=== PATIENT | female | born 1970 | race Caucasian/White ===

== ENCOUNTER 2022-05-26 16:21 | Outpatient (REF) | payer OTHER, SELFPAY ==
[2022-05-26 17:55] LABS: Blood Urea Nitrogen 12 mg/dL (9-16); Estimated Glomerular Filt Rate > 60
== END 2022-05-26 16:22 | disposition home or self-care (01) ==
LOC: HO.LAB 16:21
PROVIDERS: Psychiatry & Neurology Neurology; PCP Nurse Practitioner Primary Care; Visit Provider Internal Medicine
DX: I67.848 Other cerebrovascular vasospasm and vasoconstriction (principal)
CPT/HCPCS: 36415; 82565; 84520

== ENCOUNTER 2022-06-10 10:46 | Outpatient (REF) | payer OTHER, SELFPAY ==
--- NOTE | ~2022-06-10 | CT_ITS ---
EXAMINATION: CT ANGIOGRAM BRAIN, HEAD CLINICAL INFORMATION: Cerebral vasospasm. COMPARISON: There are no prior studies available for comparison at time of dictation. TECHNIQUE: A noncontrast axial CT scan of the head was obtained. Test bolus sequences followed by intravenous administration 75 mL of Omnipaque 350 intravenous contrast. Helical imaging was performed in the axial plane from the skull base to the vertex. Delayed postcontrast imaging of the head was also performed. The data was processed at the nuclear medical technologist workstation for generation of MIP sequences. Three-dimensional volume rendered reformatted images were also generated at an offline 3-D workstation. The degree of stenosis determined by NASCET criteria. This CT examination was performed using dose optimization techniques as appropriate, variously including the following: *Automated exposure control *Adjustment of mA and/or kV according to patient size (this includes techniques or standardized protocols for targeted exams where dose is matched to indication/reason for exam; i.e. extremities or head) *Use of iterative reconstruction technique DLP: 2162 mGy-cm FINDINGS: CT Head: There is no evidence of acute intracranial hemorrhage or territorial infarction. No abnormal mass-effect or midline shift is seen. Rubi to white matter differentiation is well preserved. No extra-axial fluid collections are identified. There is no abnormal enhancement. The ventricles and sulci normal in size. Brain parenchymal attenuation appears normal. There are no acute osseous or soft tissue abnormalities. There is hyperostosis frontalis interna. There is calcification along the superior falx toward the left of midline which may be calcification or may be a small meningioma; there is no mass effect on the adjacent brain parenchyma. The mastoid air cells are well-aerated. There is mild mucoperiosteal thickening in the ethmoid sinuses. CTA Head: In the anterior circulation, the distal internal carotid arteries within the neck appear normal. There are mild atheromatous calcifications of the cavernous internal carotid arteries bilaterally without stenosis. The supraclinoid internal carotid arteries and the intracranial internal carotid bifurcations appear normal. The middle and anterior cerebral arteries bilaterally demonstrate normal caliber with no evidence of focal stenosis, aneurysm or vascular malformation. There is normal arborization of the middle cerebral artery branches. The anterior communicating artery is normal. In the posterior circulation, the vertebral arteries are codominant and have uniform caliber. The basilar artery appears both posterior cerebral arteries are patent with uniform caliber. There is a origin of the right posterior cerebral artery. The venous sinuses opacify normally. CT/CT angio head IMPRESSION: 1. There are no acute bleeds or infarcts. There are no masses or areas of abnormal enhancement. 2. There are no focal stenoses, aneurysms or vascular malformations. The caliber of the intracranial arteries is normal. 3. There is a small calcification along the left falx superiorly which may be consistent with calcification or a small meningioma. There is no mass effect on the adjacent brain parenchyma.
[2022-06-10] MEDS: iohexoL 350 MG/ML 100 ML INFUS..BTL IV (12:06)
== END 2022-06-10 10:47 | disposition home or self-care (01) ==
LOC: HO.CT 10:46
PROVIDERS: PCP Internal Medicine; Visit Provider Psychiatry & Neurology Neurology
DX: I67.848 Other cerebrovascular vasospasm and vasoconstriction (principal)
CPT/HCPCS: 70496; Q9967

== ENCOUNTER → 2025-01-13 13:01 | Outpatient (AMB) | payer OTHER, SELFPAY ==
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
--- OUTSIDE RECORDS SUMMARY | 2025-01-13 17:35 | XMS_ITS | Encounter Summary ---
Author Organization [facility] Address [address] [facility] [address] [place] [id number] Phone Care Team Providers Care Sod Stripper Name Role Phone Pallavi Kang NP Primary Care Provid er Encounter Details Date Type Department Care Team (Late st Contact Info) Description 10/31/2023 Procedure [facility], Ct Scan - [address] [id number] Social History Tobacco Use Types Packs/Day Years Used Date Smoking Tobacco: Former Cigarettes 1 11 983 - 1993 Smokeless Tobacco: Never Alcohol Use Standard Drinks/Week Comments Yes 0 (1 standard drink = 0.6 oz pur e alcohol) few glasses of wine/yr Education Answer Date Recorded Are you interested in more education? Not on flash e 2022 Are you concerned about learning? Not on file 2022 No 2022 No 2022 Digital Access Answer Date Recorded No 07/17/2022 No 07/17/2022 Reliable internet access at home? Not on file 07/17/2022 Device with a working camera? Not on file Comments Unknown Sex and Gender Information Value Date Recorded Sex Assigned at Not on file Legal Sex Female 11:34 AM EST Gender Identity Not on file Sexual Orientation Not on file documented as of this encounter Plan of Treatment Not on file documented as of this encounter Visit Diagnoses Not on filedocumented in this encounter Care Teams Sod Stripper Relationship Specialty Start Date End Date Pallavi Kang NP [address] [place] [id number] PCP - General Nurse Practitioner 04/18/22 documented as of this encounter Additional Source Comments The information contained in this document represents components of the legal health record. It is not the complete legal health record.[facility]
--- OUTSIDE RECORDS SUMMARY | 2025-01-13 17:35 | XMS_ITS | Encounter Summary ---
Author Organization [facility] Address [address] [facility] [address] [place] [phone] Phone Care Team Providers Care Principal Solutions Architect Name Role Phone Pallavi Kang NP Primary Care Provid er Reason for Visit * Reason Comments Medication Refill Encounter Details Date Type Department Care Team (Late st Contact Info) Description 12/23/2024 Refill [facility] Rheumatology [address] [place] [address] Agatha Bhardwaj MD [address] [facility], [address] [place] [address] [email or web address] Medication Refill Social History Tobacco Use Types Packs/Day Years Used Date Smoking Tobacco: Former Cigarettes 1 11 1 983 - 1993 Smokeless Tobacco: Never Alcohol [...] documented as of this encounter Visit Diagnoses Diagnosis Psoriatic arthritis Psoriatic arthropathy documented in this encounter Care Teams Principal Solutions Architect Relationship Specialty Start Date End Date Pallavi Kang NP [address] [place] [address] PCP - General Nurse Practitioner 04/18/22 documented as of this encounter Additional Source Comments The information contained in this document represents components of the legal health record. It is not the complete legal health record.[facility]
--- OUTSIDE RECORDS SUMMARY | 2025-01-13 17:35 | XMS_ITS | Encounter Summary ---
Author Organization [facility] Address [address] [facility] [address] [place] [phone] Phone Care Team Providers Care Roving Sizer Name Role Phone Pallavi Kang NP Primary Care Provid er Reason for Visit * Reason Comments Medication Refill Encounter Details Date Type Department Care Team (Late st Contact Info) Description 01/06/2025 Refill [facility] Rheumatology [address] [place] [address] Agatha Bhardwaj MD [address] [facility], [address] [place] [address] [email or web address] Medication Refill Social History Tobacco Use Types [...] arthropathy documented in this encounter Care Teams Roving Sizer Relationship Specialty Start Date End Date Pallavi Kang NP [address] [place] [address] PCP - General Nurse Practitioner 04/18/22 documented as of this encounter Additional Source Comments The information contained in this document represents components of the legal health record. It is not the complete legal health record.[facility]
--- OUTSIDE RECORDS SUMMARY | 2025-01-13 17:36 | XMS_ITS | Clinical Summary ---
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 04/08/19 23 Active aspirin 81 MG EC tablet Take 81 mg by mouth daily. 03/03/19 23 Active atorvastatin (LIPITOR) 80 MG tablet Take 1 tablet by mouth daily. 10/01/19 23 Active escitalopram oxalate (LEXAPRO) 10 MG tablet Take 1 tablet by mouth every morning. 10/11/19 23 Active ezetimibe (ZETIA) 10 mg tablet Take 1 tablet by mouth daily. 10/11/19 23 Active irbesartan-hydro CHLOROthiazide (AVALIDE) 150-12.5 mg per tablet Take 1 tablet by mouth every morning. 10/01/19 23 Active metFORMIN (GLUCOPHAGE-XR) 500 MG 24 hr tablet Take 1,000 mg by mouth 2 (two) times a day. 10/01/19 23 Active metoprolol succinate (TOPROL-XL) 25 MG 24 hr tablet Take 1 tablet by mouth every morning. 10/01/19 23 Active nitroglycerin (NITROSTAT) 0.[address] 1 tablet (0.3 mg total) under the tongue every 5 (five) minutes as needed for chest pain. 90 tablet 3 10/27/19 24 Active fluocinonide 0.05 % ointmentIndicati ons:Psoriasis Apply topically 2 (two) times a day. 15 g 03/05/19 25 Active ibuprofen (ADVIL,MOTRIN) 800 MG tablet Take 800 mg by mouth daily as needed. Takes rarely about 1 a month 05/15/19 25 Active OZEMPIC 1 mg/dose (4 mg/3 mL) subcutaneous injection pen Inject 1 mg under the skin once a week. 05/02/19 25 Active betamethasone valerate 0.1 % ointmentIndicati ons:Psoriasis Apply topically 2 (two) times a day. 45 g 1 06/06/19 25 Active cholecalciferol (VITAMIN D3) 5,000 unit capsuleIndicatio ns:Vitamin D insufficiency Take 1 capsule (5,000 Units total) by mouth daily. 90 capsule 1 01/07/20 25 Active etanercept (ENBREL) 50 mg/mL (1 mL) PnIjIndications: Psoriatic arthritis Inject 1 mL (50 mg total) under the skin every 7 days. 4 mL 11 01/07/20 25 Active cholecalciferol (VITAMIN D3) 25 MCG (1,000 unit) tablet Take 1,000 Units by mouth daily. 025 Discontinued(N o longer taking) etanercept (ENBREL) 50 mg/mL (1 mL) PnIjIndications: Psoriatic arthritis Inject 1 mL (50 mg total) under the skin every 7 days. 4 mL 5 04/03/19 25 025 Discontinued(R eorder) LANLanieUS SOLOSTAR U-100 INSULIN 100 unit/mL (3 mL) InPn injection pen Inject 10 Units under the skin nightly at bedtime. 05/28/19 25 025 Discontinued(N o longer taking) cholecalciferol (VITAMIN D3) 5,000 unit capsuleIndicatio ns:Vitamin D insufficiency Take 1 capsule (5,000 Units total) by mouth daily. 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 Continue diligent portion control. Limit concentrated sugars, saturated fats and calories in the diet. Keep well-hydrated. If unable to achieve expected goal consider formal dietary/nutritional support. Class 2 severe obesity due t o excess calories with serious comorbidity and body mass index (BMI) of 37.0 to 37.9 in adult 06/05/2024 Assessment & Plan (07/06/2024 3:44 PM EDT): Congratulations on losing 16 pounds from 230 on 03/01/2024 down to 214 today and keep it off. Continue diligent portion control. Limit concentrated sugars, saturated fats and calories in the diet. Keep well-hydrated. If unable to achieve expected goal consider formal dietary/nutritional support. Vitamin D insufficiency 03/01/2024 Assessment & Plan (01/06/2025 10:14 AM EST): Take vitamin D 5000 units daily to replace the deficit. Assessment & Plan (06/05/2024 5:59 PM EDT): Take vitamin D 5000 units daily to replace the deficit. Assessment & Plan (03/01/2024 12:56 PM EST): Take vitamin D 5000 units daily to replace the deficit. Psoriasis 03/01/2024 Assessment & Plan (01/06/2025 10:14 AM EST): In the past she had good response to 0.0.5 % topical Betamethasone dipropionate ointment that I represcribed her today while awaiting approval for biologic modifying antirheumatic drug from [employer] (ixekizumab) Assessment & Plan (06/05/2024 5:59 PM EDT): In the past she had good response to 0.0.5 % topical Betamethasone dipropionate ointment that I represcribed her today while awaiting approval for biologic modifying antirheumatic drug from [employer] inhibitors group-Taltz (ixekizumab) Assessment & Plan (03/01/2024 12:57 PM EST): In the past she had good response to 0.0.5 % topical Betamethasone dipropionate ointment that I represcribed her today while awaiting approval for biologic modifying antirheumatic drug from IL-17 inhibitors group-Taltz (ixekizumab) Primary osteoarthritis of left hip 03/01/2024 Assessment & Plan (03/01/2024 1:00 PM EST): Avoid falls, injuries, overuse, walking on the incline. If symptoms persist may need to consider visit to the orthopedic surgeon to consider intra-articular steroid injection. Vitamin D deficiency, unspecified 02/18/2024 Assessment & Plan (02/18/2024 10:09 PM EST): Serum level requested to make sure that she does not require additional supplementation to keep it in optimal range: 40-45 ng/ml. Encounter for monitoring of etanercept therapy 1 04/03/2023 Assessment & Plan (01/06/2025 10:14 AM EST): Hold Enbrel whenever running fever, feeling sick or taking antibiotics. Complete entire course of antibiotics and wait at least 48 hours after the last dose to make sure that infection does not recur before restarting Enbrel on its usual weekly dosing schedule. Monitor for any signs of infection, injection site reaction. Make sure to inform any new MD PA, DEMOLITION ENGINEER about treatment with Enbrel particularly in emergency situations Assessment & Plan (06/05/2024 5:59 PM EDT): Hold Enbrel whenever running fever, feeling sick or taking antibiotics. Complete entire course of antibiotics and wait at least 48 hours after the last dose to make sure that infection does not recur before restarting Enbrel on its usual weekly dosing schedule. Monitor for any signs of infection, injection site reaction. Make sure to inform any new MD, PA, DEMOLITION ENGINEER about treatment with Enbrel particularly in emergency situations Assessment & Plan (03/01/2024 12:58 PM EST): Hold Enbrel whenever running fever, feeling sick or taking antibiotics. Complete entire course of antibiotics and wait at least 48 hours after the last dose to make sure that infection does not recur before restarting Enbrel on its usual weekly dosing schedule. Monitor for any signs of infection, injection site reaction. Make sure to inform any new MEHUL WILLS DEMOLITION ENGINEER about treatment with Enbrel particularly in emergency situations Assessment & Plan (02/18/2024 10:11 PM EST): Hold Enbrel whenever running fever, feeling sick or taking antibiotics. Complete entire course of antibiotics and wait at least 48 hours after the last dose to make sure that infection does not recur before restarting Enbrel on its usual weekly dosing schedule. Monitor for any signs of infection, injection site reaction. Make sure to inform any new MEHUL WILLS DEMOLITION ENGINEER about treatment with Enbrel particularly in emergency situations Encounter for monitoring statin therapy 02/01/20 Assessment & Plan (01/06/2025 10:14 AM EST): Monitor for muscle tenderness, swelling and weakness Assessment & Plan (06/05/2024 5:43 PM EDT): Monitor for muscle tenderness, swelling and weakness Assessment & Plan (03/01/2024 12:57 PM EST): Monitor for muscle tenderness, swelling and weakness Assessment & Plan (02/18/2024 10:10 PM EST): Monitor for muscle tenderness, swelling and weakness Sicca 02/01/2024 Assessment & Plan (02/18/2024 10:10 PM EST): Keep well-hydrated. Avoid spicy and acidic foods. Diligent mouth hygiene. Regular dental checkups. Right bundle branch block (RBBB) 06/13/2023 Shortness of breath 06/09/2023 Assessment & Plan (06/09/2023 10:57 AM EDT): I will investigate with an echo Palpitations 06/09/2023 Assessment & Plan (06/09/2023 10:57 AM EDT): This lady sounded like she had a real CVA I am going to get her tested for sleep apnea and atrial fibrillation Diabetes 1.5, managed as type 2 06/09/2023 Assessment & Plan (01/06/2025 10:14 AM EST): Continue well-balanced nutritionally diet focusing on avoiding concentrated sugars, cholesterol and saturated fats in her diet. Follow-up closely with PCP and if needed pencil inspector. Assessment & Plan (06/05/2024 5:59 PM EDT): Continue well-balanced nutritionally diet focusing on avoiding concentrated sugars, cholesterol and saturated fats in her diet. Follow-up closely with PCP and if needed pencil inspector. Assessment & Plan (03/01/2024 12:58 PM EST): Continue well-balanced nutritionally diet focusing on avoiding concentrated sugars, cholesterol and saturated fats in her diet. Follow-up closely with PCP and if needed pencil inspector. Assessment & Plan (02/18/2024 10:12 PM EST): Continue well-balanced nutritionally diet focusing on avoiding concentrated sugars, cholesterol and saturated fats in her diet. Follow-up closely with PCP and if needed pencil inspector. Assessment & Plan (09/13/2023 9:22 AM EDT): A1c last checked in May was poorly controlled at 8.7 I did discuss with her at length lifestyle modification which is hager here. Atherosclerosis of [place] coronary artery 2023 Assessment & Plan (09/13/2023 9:21 AM EDT): Asymptomatic after PCI EF is normal by recent echocardiogram Assessment & Plan (06/09/2023 10:57 AM EDT): This lady is currently asymptomatic post PCI I have ordered an echo she recently had a stress test done at [place] which was negative for ischemia Pure hypercholesterolemia 06/09/2023 Assessment & Plan (09/13/2023 9:22 AM EDT): She is on high intensity statin therapy LDL is aggressively controlled in the 40s Assessment & Plan (06/09/2023 10:58 AM EDT): She is on high intensity statin therapy LDL should be less than 70 mg/dL A1c should be less than 7 Inflammatory arthritis 02/14/2023 Assessment & Plan (01/06/2025 10:14 AM EST): According to her report she is seen by health care coach-Dr. Freeman usually once a year but was not sure about his diagnosis-? Psoriasis versus eczema - I requested release of records for review-they have not arrived yet. X-rays from 02/01/2024 including hands, feet, sacroiliac joints and hips revealed mostly degenerative changes without erosions however bulky bilateral Achilles calcaneal enthesophytes, L>R in addition to small plantar calcaneal enthesophytes that are frequently present in patients with psoriatic arthritis that she needs to get treated more effectively to prevent development of erosions and joint deformities. She still has Enbrel at home and is willing to continue on it for now until I apply to her insurance for approval to switch her treatment to psoriatic arthritis geared medications such as Taltz (ixekizumab) versus Tremfya (guselkumab) versus Cosentyx (secukinumab). She is instructed to call for appointment with the nurse once the medication is delivered to her house so she can get the first injection in the office and be observed for 30 minutes to assure that she has no allergic reaction. Provided she has no worsening she is asked to come back in 4 months with prior monitoring labs-standing orders in [facility]. I have asked her to keep a diary of flares with details regarding location, severity, length of episode and her strategy. She may also get lab work at the time of flare with the hope of better understanding it. Call if problems or questions. Assessment & Plan (07/06/2024 3:45 PM EDT): According to her report she is seen by health care coach-Dr. Freeman usually once a year but was not sure about his diagnosis-? Psoriasis versus eczema - I requested release of records for review-they have not arrived yet. X-rays from 02/01/2024 including hands, feet, sacroiliac joints and hips revealed mostly degenerative changes without erosions however bulky bilateral Achilles calcaneal enthesophytes, L>R in addition to small plantar calcaneal enthesophytes that are frequently present in patients with psoriatic arthritis that she needs to get treated more effectively to prevent development of erosions and joint deformities. She still has Enbrel at home and is willing to continue on it for now until I apply to her insurance for approval to switch her treatment to psoriatic arthritis geared medications such as Taltz (ixekizumab) versus Tremfya (guselkumab) versus Cosentyx (secukinumab). She is instructed to call for appointment with the nurse once the medication is delivered to her house so she can get the first injection in the office and be observed for 30 minutes to assure that she has no allergic reaction. Provided she has no worsening she is asked to come back in 4 months with prior monitoring labs-standing orders in [facility]. I have asked her to keep a diary of flares with details regarding location, severity, length of episode and her strategy. She may also get lab work at the time of flare with the hope of better understanding it. Call if problems or questions. Assessment & Plan (03/01/2024 12:56 PM EST): According to her report she is seen by health care coach-Dr. Freeman usually once a year but was not sure about his diagnosis-? Psoriasis versus eczema - I requested release of records for review-they have not arrived yet. X-rays from 02/01/2024 including hands, feet, sacroiliac joints and hips revealed mostly degenerative changes without erosions however bulky bilateral Achilles calcaneal enthesophytes, L>R in addition to small plantar calcaneal enthesophytes that are frequently present in patients with psoriatic arthritis that she needs to get treated more effectively to prevent development of erosions and joint deformities. She still has Enbrel at home and is willing to continue on it for now until I apply to her insurance for approval to switch her treatment to psoriatic arthritis geared medications such as Taltz (ixekizumab) versus Tremfya (guselkumab) versus Cosentyx (secukinumab). She is instructed to call for appointment with the nurse once the medication is delivered to her house so she can get the first injection in the office and be observed for 30 minutes to assure that she has no allergic reaction. Provide that she has no worsening she is asked to come back in 3 months with prior monitoring labs-standing orders in [facility]. Call if problems or questions. Assessment & Plan (02/18/2024 10:08 PM EST): According to her report she is seen by health care coach-Dr. Freeman usually once a year but was not sure about his diagnosis-? Psoriasis versus eczema - I requested release of records for review. I took the liberty of getting a new set of lab work and x-rays looking for confirmation of suspected psoriatic arthritis. She still has Enbrel at home and is willing to continue on it for now in addition to short burst of prednisone as needed while reviewing other options such as Cimzia (certolizumab), Simponi (golimumab) versus Remicade (infliximab) Dysuria 02/14/2023 Psoriatic arthritis 11/14/2022 Assessment & Plan (01/06/2025 10:51 AM EST): According to her report she is seen by health care coach-Dr. Freeman usually once a year but was not sure about his diagnosis-? Psoriasis versus eczema - I requested release of records for review-they have not arrived yet. X-rays from 02/01/2024 including hands, feet, sacroiliac joints and hips revealed mostly degenerative changes without erosions however bulky bilateral Achilles calcaneal enthesophytes, L>R in addition to small plantar calcaneal enthesophytes that are frequently present in patients with psoriatic arthritis that she needs to get treated more effectively to prevent development of erosions and joint deformities. She still has Enbrel at home and is willing to continue on it for now until I apply to her insurance for approval to switch her treatment to psoriatic arthritis geared medications such as Taltz (ixekizumab) versus Tremfya (guselkumab) versus Cosentyx (secukinumab). She is instructed to call for appointment with the nurse once the medication is delivered to her house so she can get the first injection in the office and be observed for 30 minutes to assure that she has no allergic reaction. Provided she has no worsening she is asked to come back in 4 months with prior monitoring labs-standing orders in [facility]. I have asked her to keep a diary of flares with details regarding location, severity, length of episode and her strategy. She may also get lab work at the time of flare with the hope of better understanding it. Call if problems or questions. Assessment & Plan (06/05/2023 3:12 PM EDT): Inflammatory psoriatic arthritis with overall increase in stiffness and fatigue. She has no current swelling. She should continue with Enbrel which she appears to be tolerating. Gave her an intramuscular injection of triamcinolone to reduce her stiffness. Assessment & Plan (11/14/2022 10:54 AM EDT): Psoriatic arthritis currently stable on weekly Enbrel. We talked about other medication options, perhaps Rinvoq or Xeljanz, but given her cardiac history Enbrel may be her safest option at this time. She has no active synovitis, but does have overall stiffness and achiness. Get some baseline labs today including hepatitis B, C and QuantiFERON gold. Primary osteoarthritis involving multiple joints 11/14/2022 Assessment & Plan (01/06/2025 10:13 AM EST): Continue joint protection, energy conservation. Gentle, regular exercise routine. Avoid falls, injuries, overuse. Work on bringing her body weight as close as possible to ideal range for her height. She may benefit from topical cream such as Arnica, Biofreeze, Aspercreme versus medicated patches such as salonpas, icy hot patch 2-3 times daily and if necessary at bedtime x 3 weeks. Okay to use carefully Tylenol 650 mg up to 3 times as needed Assessment & Plan (03/01/2024 12:50 PM EST): Continue joint protection, energy conservation. Gentle, regular exercise routine. Avoid falls, injuries, overuse. Work on bringing her body weight as close as possible to ideal range for her height. She may benefit from topical cream such as Arnica, Biofreeze, Aspercreme versus medicated patches such as salonpas, icy hot patch 2-3 times daily and if necessary at bedtime x 3 weeks. Okay to use carefully Tylenol 650 mg up to 3 times as needed Assessment & Plan (02/18/2024 10:02 PM EST): Continue joint protection, energy conservation. Gentle, regular exercise routine. Avoid falls, injuries, overuse. Work on bringing her body weight as close as possible to ideal range for her height. She may benefit from topical cream such as Arnica, Biofreeze, Aspercreme versus medicated patches such as salonpas, icy hot patch 2-3 times daily and if necessary at bedtime x 3 weeks. Okay to use carefully Tylenol 650 mg up to 3 times as needed Assessment & Plan (06/05/2023 3:13 PM EDT): Osteoarthritis in multiple areas. Advised weight loss. She can continue with Tylenol 650 mg as needed. Assessment & Plan (11/14/2022 10:55 AM EDT): Much of her pain is from degenerative osteoarthritis in multiple areas including the cervical and lumbar spine hips knees and hands. She should continue with Tylenol 650 mg as needed and should avoid oral NSAIDs. Resolved Problems Problem Noted Date Diagnosed Date Resolved Date Class 3 severe obesity due t o excess calories with serious comorbidity and body mass index (BMI) of 40.0 to 44.9 in adult 02/01/2024 Assessment & Plan (03/01/2024 12:59 PM EST): Continue diligent portion control regularly in view of 1 pound weight gain from 229 on 02/01/2024 up to 230 today. Limit concentrated sugars, saturated fats and calories in the diet. Keep well-hydrated. If unable to achieve expected goal consider formal dietary/nutritional support. Assessment & Plan (02/18/2024 10:13 PM EST): Continue diligent portion control regularly in view of 11 pounds weight gain from 218 on 05/06/2023 up to 229 today. Limit concentrated sugars, saturated fats and calories in the diet. Keep well-hydrated. If unable to achieve expected goal consider formal dietary/nutritional support. 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 and body mass index (BMI) of 36.0 to 36.9 in adult 01/06/2025 Refill [facility] [address] [place] [id number] Agatha Bhardwaj MD Medication Refill 12/23/2024 Refill [facility] [address] [place] [address] [place] [id number] Agatha Bhardwaj MD Medication Refill 11/05/2024 Documentation [facility] [address] [place] [id number] Allie Guzman RPH from Last 3 Months Family History Medical History Relation Comments No Known Problems Brother Asthma Daughter Gastrointestinal Disorder Daughter Coronary artery disease Father Sleep apnea Father COPD Maternal Grandmother Arthritis Mother Diabetes Mother Relation Status Comments Brother Alive Daughter Alive Father Maternal Grandmother Mother Alive Social History Tobacco Use Types Packs/Day Years [...] on file Sexual Orientation Not on file Last Filed Vital Signs Vital Sign Reading Time Taken Comments Blood Pressure 124/80 01/06/2025 10:03 AM EST Pulse 78 01/06/2025 10:03 AM EST Temperature - - Respiratory Rate - - Oxygen Saturation 96% 01/06/2025 10:03 AM EST Inhaled Oxygen Concentration - - Weight 92.4 kg (203 lb 9.6 oz) 01/06/2025 10:03 AM EST Height 160 cm (5' 3 ) 01/06/2025 10:03 AM EST Body Mass Index 36.07 01/06/2025 10:03 AM EST Plan of Treatment Health Maintenance Due Date Last Done Comments Adult Td,Tdap Booster 1968 DEPRESSION SCREENING 1980 HIV ONE-TIME SCREENING (18-65 YEARS) 1986 PNEUMOCOCCAL VACCINES (50+ years) (1 of 2 - PCV) 06/19/1987 ZOSTER VACCINES (1 of 2) 06/19/1987 PAP SMEAR 1989 MAMMOGRAM 2008 COLOGUARD 2013 COLONOSCOPY 2013 COLORECTAL CANCER SCREENING 2013 FIT TEST 2013 FOBT 2013 SIGMOIDOSCOPY 2013 VIRTUAL COLONOSCOPY 2013 RSV VACCINE (1 - Risk 50-74 years 1-dose series) 2018 DIABETIC EYE EXAM 06/09/2023 05/16/2022, , 05/16/2022, Additional history exists HEMOGLOBIN A1C 01/26/2024 10/27/2023, 06/09/2023 INFLUENZA VACCINE (#1) 2024 12/06/2020 COVID-19 VACCINE ( season) 2024 06/30/2021, 01/17/2021, 04/09/2020, Additional history exists BLOOD PRESSURE 07/06/2025 01/06/2025 CREATININE LEVEL 12/25/2025 12/25/2024, , 02/01/2024, Additional history exists POTASSIUM LEVEL 12/25/2025 12/25/2024, 05/22, 02/01/2024, Additional history exists HEPATITIS C SCREENING Completed 10/19/2022, 023 SMOKING STATUS SCREENING (Once After 26 Yrs) Completed 01/06/2025 HEPATITIS A VACCINES Aged Out No long er eligible based on patient's age to complete this topic HIB VACCINES Aged Out No longer eligi ble based on patient's age to complete this topic MENINGOCOCCAL VACCINES (ACWY) Aged Out No longer eligible based on patient's age to complete this topic MENINGOCOCCAL VACCINES (B) Aged Out N o longer eligible based on patient's age to complete this topic Medical Devices Not on file Procedures Procedure Name Priority Date/Time Associated Diagnosis Comments CBC AND DIFFERENTIAL Routine 12/25/2024 1:30 PM EST Inflammatory arthritis Encounter for monitoring of etanercept therapy Psoriasis CBC AND DIFFERENTIAL Routine 12/25/2024 1:30 PM EST Inflammatory arthritis Encounter for monitoring of etanercept therapy Psoriasis SEDIMENTATION RATE (ESR) Routine 12/25/2024 1:30 PM EST Inflammatory arthritis Encounter for monitoring of etanercept therapy Psoriasis C-REACTIVE PROTEIN (CRP) Routine 12/25/2024 1:30 PM EST Inflammatory arthritis Encounter for monitoring of etanercept therapy Psoriasis COMPREHENSIVE METABOLIC PANEL (CMP) Routine 12/25/2024 1:30 PM EST Inflammatory arthritis Encounter for monitoring of etanercept therapy Psoriasis HEMOGLOBIN A1C Routine 10/27/2023 1:40 PM EDT Type 2 diabetes mellitus with other circulatory complication, without long-term current use of insulin HEPATITIS C ANTIBODY, QUALITATIVE Routine 10/19/2022 12:20 PM EDT Psoriatic arthritis Need for hepatitis C screening test from Last 3 Months or Most Recently Relevant to Health Maintenance Results * (ABNORMAL) Comprehensive Metabolic Panel (CMP) (12/25/2024 1:30 PM EST) Sodium 138 136 - 145 mmol/L 12/25/2024 6:55 PM EST [facility] Potassium 4.4 3.4 - 5.1 mmol/L 12/25/2024 6:55 PM [facility] Chloride 100 98 - 107 mmol/L 12/25/2024 6:55 PM [facility] CO2 25 20 - 31 mmol/L 12/25/2024 6:55 PM [facility] Anion Gap 13 3 - 17 mmol/L 12/25/2024 6:55 PM [facility] BUN 18 6 - 23 mg/dL 12/25/2024 6:55 PM [facility] Creatinine 0.70 0.50 - 1.00 mg/dL 12/25/2024 6:55 PM [facility] eGFR 101 >59 mL/min/1.7 3m2 12/25/2024 6:55 PM [facility] Comment:Estimated glomerular filtration rate calculated using the CKD-EPI refit equation. Glucose 104(H) 70 - 99 mg/dL 12/25/2024 6:55 PM [facility] Calcium 9.9 8.5 - 10.5 mg/dL 12/25/2024 6:55 PM [facility] AST 25 <33 U/L 12/25/2024 6:55 PM [facility] ALT 20 <34 U/L 12/25/2024 6:55 PM [facility] Alkaline Phosphatase 113 40 - 130 U/L 12/25/2024 6:55 PM [facility] Bilirubin, Total 0.3 0.0 - 1.2 mg/dL 12/25/2024 6:55 PM [facility] Total Protein 7.8 6.4 - 8.3 g/dL 12/25/2024 6:55 PM [facility] Albumin 4.7 3.5 - 5.2 g/dL 12/25/2024 6:55 PM [facility] Globulin 3.1 1.9 - 4.1 g/dL 12/25/2024 6:55 PM [facility] Blood 12/25/2024 1:30 PM EST 12/25/2024 1:31 PM EST us Agatha Bhardwaj MD LAB BLOOD BKR ORDERABLES Final Result [facility] [address] [place] [address] * (ABNORMAL) CBC and Differential (12/25/2024 1:30 PM EST) WBC 11.31(H) 4.00 - 11.00 K/uL 12/25/2024 6:17 PM [facility] RBC 4.23 4.00 - 5.20 M/uL 12/25/2024 6:17 PM [facility] Hemoglobin 11.8(L) 12.0 - 16.0 g/dL 12/25/2024 6:17 PM [facility] Hematocrit 36.4 36.0 - 46.0 % 12/25/2024 6:17 PM [facility] MCV 86.1 80.0 - 100.0 fL 12/25/2024 6:17 PM [facility] MCH 27.9 27.0 - 31.0 pg 12/25/2024 6:17 PM [facility] MCHC 32.4 32.0 - 36.0 g/dL 12/25/2024 6:17 PM [facility] MPV 11.1 8.4 - 12.0 fL 12/25/2024 6:17 PM [facility] RDW-CV 13.5 11.5 - 14.5 % 12/25/2024 6:17 PM [facility] PLT 267 150 - 450 K/uL 12/25/2024 6:17 PM [facility] Neutrophils 45.3 % 12/25/2024 6:17 PM [facility] Lymphocytes 43.6 % 12/25/2024 6:17 PM [facility] Monocytes 6.5 % 12/25/2024 6:17 PM [facility] Eosinophils 3.4 % 12/25/2024 6:17 PM [facility] Basophils 0.6 % 12/25/2024 6:17 PM [facility] Imm Grans 0.6 % 12/25/2024 6:17 PM [facility] NRBC 0.0 <=0.0 /100 WBCs 12/25/2024 6:17 PM [facility] Absolute Neutrophils 5.12 1.92 - 7.60 K/uL 12/25/2024 6:17 PM [facility] Absolute Lymphocytes 4.93(H) 0.72 - 4.10 K/uL 12/25/2024 6:17 PM [facility] Absolute Monocytes 0.74 0.16 - 1.10 K/uL 12/25/2024 6:17 PM [facility] Absolute Eosinophils 0.38 0.00 - 0.50 K/uL 12/25/2024 6:17 PM [facility] Absolute Basophils 0.07 0.00 - 0.15 K/uL 12/25/2024 6:17 PM [facility] Absolute Imm Grans 0.07 0.00 - 0.09 K/uL 12/25/2024 6:17 PM [facility] Absolute NRBC 0.00 <=0.00 K cells/uL 12/25/2024 6:17 PM [facility] Absolute Neutrophils 5.12 1.92 - 7.60 K/uL 12/25/2024 6:17 PM [facility] Comment:Automated cell count . Manual ANC may differ if performed. Diff Type Auto 12/25/2024 6:17 PM [facility] Blood 12/25/2024 1:30 PM EST 12/25/2024 1:31 PM EST us Agatha Bhardwaj MD LAB BLOOD BKR ORDERABLES Final Result [address] [address] * Erythrocyte Sedimentation Rate (ESR) (12/25/2024 1:30 PM EST) ESR 17 0 - 30 mm/h 12/25/2024 6:30 PM [facility] Blood 12/25/2024 1:30 PM EST 12/25/2024 1:31 PM EST us Agatha Bhardwaj MD LAB BLOOD BKR ORDERABLES Final Result [address] [address] * C-Reactive Protein (CRP) (12/25/2024 1:30 PM EST) C Reactive Protein <3.0 <10.0 mg/L 12/25/2024 8:57 PM EST [facility] Comment:NOTE: This reference range is for the evaluation of inflammation. Order CRP, High Sensitivity for cardiac risk status evaluation. Blood 12/25/2024 1:30 PM EST 12/25/2024 1:31 PM EST us Agatha Bhardwaj MD LAB BLOOD BKR ORDERABLES Final Result Performing Organization Address [facility] Co de Phone Number [address] [phone] * (ABNORMAL) Hemoglobin A1c (10/27/2023 1:40 PM EDT) HEMOGLOBIN A1C 8.1(H) 4.3 - 5.8 % [facility] Blood 10/27/2023 1:40 PM EDT 10/27/2023 1:41 PM EDT us Randy Nguyen DO LAB BLOOD BKR ORDERABLES [facility] Result Performing Organization Address [facility]/ZIP Co de Phone Number [address] [address] * Hepatitis C antibody, qualitative (10/19/2022 12:20 PM EDT) HCV NON-REACTIV E NON-REACTI VE [facility] Blood 10/19/2022 12:2 0 PM EDT 10/19/2022 12:27 PM EDT us Andrade Gill MD LAB BLOOD BKR ORDERABLE S Final Result Performing Organization Address [facility]/ZIP Co de Phone Number [address] [address] from Last 3 Months or Most Recently Relevant to Health Maintenance [place] [address] [place] [address] [place] [address] [place] [address] EXPLORER POS [facility] EXPLORER POS EXPLORER POS [place] [place] [address] [place] [address] EXPLORER POS [employer] Care Teams Glass Laminating Operator Relationship Specialty Start Date End Date Pallavi Kang NP [address] [place] [address] PCP - General Nurse Practitioner 04/18/22 Additional Source Comments The information contained in this document represents components of the legal health record. It is not the complete legal health record.[facility]
--- OUTSIDE RECORDS SUMMARY | 2025-01-13 17:36 | XMS_ITS | Encounter Summary ---
Author Organization [facility] Address [address] [employer] [facility] [address] [place] [phone] Phone Care Team Providers Care Press Clippings Cutter And Paster Name Role Phone Pallavi Kang SHIRT FOLDER Primary Care Provid er Reason for Visit * Reason Onset Date Comments requesting referral 04/25/2023 Pt is reques ting another Rheumato referral to see Dr. Singh Encounter Details Date Type Department Care Team (Late st Contact Info) Description 04/25/2023 Telephone [facility] Rheumatology [address] [place] [address] Andrade Gill MD requesting referral (Pt is requesting another Rheumato referral to see Dr. Singh) Social History Tobacco Use Types Packs/Day Years Used Date Smoking Tobacco: Never Smokeless Tobacco: Never Alcohol Use Standard Drinks/Week Comments Not Currently 0 (1 standard drink = 0.6 oz pur e alcohol) Education Answer Date Recorded Are you interested [...] on file documented as of this encounter Progress Notes * Vanessa Graham - 04/25/2023 2:20 PM EST documented in this encounter Plan of Treatment Not on file documented as of this encounter Visit Diagnoses Not on filedocumented in this encounter Care Teams Press Clippings Cutter And Paster Relationship Specialty Start Date End Date Pallavi Kang NP [address] [place] [address] PCP - General Nurse Practitioner 04/18/22 documented as of this encounter Additional Source Comments The information contained in this document represents components of the legal health record. It is not the complete legal health record.[facility]
--- OUTSIDE RECORDS SUMMARY | 2025-01-13 17:36 | XMS_ITS | Clinical Summary ---
Author Organization [facility] Address [address] [place] [address] Phone Care Team Providers Care Social Media Strategist Name Role Phone Pallavi Kang NP Primary Care Provider [phone]- [phone] Social History Tobacco Use Types Packs/Day Years Used Date Smoking Tobacco: Never Assessed Comments Unknown Sex and Gender Information Value Date Recorded Sex Assigned at Female 07/04/2024 12:36 PM EDT Legal Sex Female 5:49 AM EST Gender Identity Female 07/04/2024 12:36 PM EDT Sexual Orientation Not on file Plan of Treatment Health Maintenance Due Date Last Done Comments Breast Cancer Screening 1968 Colorectal Cancer Screening: Colonoscopy 1968 Diabetes: Annual Foot Exam 1978 Diabetes: Annual Retina Eye Exam 1978 DTaP,Tdap,and Td Vaccines (1 - Tdap) 06/19/1987 Hepatitis B Vaccines (1 of 3 - 19+ 3-dose series) 06/19/1987 Cervical Cancer Screening: Pap Smear 1989 Pneumococcal Vaccine: 50+ Years (1 of 1 - PCV) 2018 RSV Immunization Adult Patients (1 - Risk 50-74 years 1-dose series) 2018 Zoster Vaccines (1 of 2) 2018 Cholesterol Screening (Lipid Panel) 01/23/2022 HIV Screening 01/23/2022 Social Influencers of Health Screening 01/23/2022 Depression Screening 02/21/2024 Diabetes: Annual Urine Albumin-Creatinine Ratio (uACR) 07/10/2024 Diabetes: Blood Sugar Control Test (HGBA1C) 07/10/2024 COVID-19 Vaccine ( season) 2024 06/30/2021, 01/17/2021, 04/09/2020, Additional history exists Influenza Vaccine (#1) 2024 12/06/2020 Diabetes: Annual GFR (Glomerular Filtration Rate) 06/11/2025 06/11/2024, 02/01/2024, 01/19/2023, Additional history exists Hypertension/CHF/CAD Annual BMP Blood Test 06/11/2025 06/11/2024, 02/01/2024, 01/19/2023, Additional history exists Hepatitis C Screening Completed 10/19/2022 HIB Vaccines Aged Out No longer eligi ble based on patient's age to complete this topic HPV Vaccines Aged Out No longer eligi ble based on patient's age to complete this topic Hepatitis A Vaccines Aged Out No long er eligible based on patient's age to complete this topic IPV Vaccines Aged Out No longer eligi ble based on patient's age to complete this topic MMR Vaccines Aged Out No longer eligi ble based on patient's age to complete this topic Meningococcal ACWY Vaccine Aged Out N o longer eligible based on patient's age to complete this topic Meningococcal B Vaccine Aged Out No l onger eligible based on patient's age to complete this topic RSV Immunization Patients Under 20 months Aged Out No longer eligible based on patient's age to complete this topic Varicella Vaccines Aged Out No longer eligible based on patient's age to complete this topic Insurance [facility] Care Teams Social Media Strategist Relationship Specialty Start Date End Date Pallavi Kang NP [address] [place] [id number] PCP - General Nurse Practitioner 07/04/24
--- OUTSIDE RECORDS SUMMARY | 2025-01-13 17:36 | XMS_ITS | Encounter Summary ---
Author Organization [facility] Address [address] [facility] [address] [place] [phone] Phone Care Team Providers Care Abstractor Name Role Phone Pallavi Kang NP Primary Care Provid er Encounter Details Date Type Department Care Team (Late st Contact Info) Description 06/09/2023 Procedure Pass Echo Lab [address] [place] [address] Social History Tobacco Use Types Packs/Day Years [...] on filedocumented in this encounter Care Teams Abstractor Relationship Specialty Start Date End Date Pallavi Kang NP [address] [place] [address] [place] [id number] PCP - General Nurse Practitioner 04/18/22 documented as of this encounter Additional Source Comments The information contained in this document represents components of the legal health record. It is not the complete legal health record.[facility]
== END ==
LOC: HO.HSM 13:03
PROVIDERS: PCP Internal Medicine; Visit Provider Psychiatry & Neurology Neurology
DX: G43.009 Migraine without aura, not intractable, without status migrainosus (principal); G43.109 Migraine with aura, not intractable, without status migrainosus; F41.9 Anxiety disorder, unspecified
CPT/HCPCS: 99213